=== PATIENT | male | born 1950 | race Caucasian/White ===

== ENCOUNTER 2019-05-09 05:53 | Emergency (ER) | payer MEDICARE, OTHER ==
[2019-05-09 06:16] VITALS: BP 135/79; PULSE 84; RESP 22; TEMP 97.4
[2019-05-09 06:41] LABS: Basophils % (A) 0 %; Eosinophils # (A) 0.1 k/uL (0-0.7); Eosinophils % (A) 1 %; HCT 46.8 % (39.0-53.0); HGB 14.9 gm/dL (13.0-17.5); Lymphocytes # (A) 1.6 k/uL (1.0-4.8); Lymphocytes % (A) 28 %; MCH 27.3 pg (25.0-35.0); MCHC 31.8 g/dL (31.0-37.0); Mean Platelet Volume 7.8; Monocytes # (A) 0.2 k/uL (0-1.0); Monocytes % (A) 3 %; Neutrophils # (A) 3.9 k/uL (1.3-7.7); Neutrophils % (A) 67 %; Platelet Count 252 k/uL (150-450); RBC 5.44 m/uL (4.30-5.90); RDW 14.7 % (11.5-15.5); WBC 5.9 k/uL (3.8-10.6)
[2019-05-09 06:51] LABS: INR 1.1 (<1.2); Partial Thromboplastin Time 26.6 sec (22.0-30.0); Prothrombin Time 11.6 sec (9.0-12.0)
[2019-05-09 06:54] LABS: Albumin 4.1 g/dL (3.5-5.0); Calcium 9.8 mg/dL (8.4-10.2); Potassium 4.6 mmol/L (3.5-5.1); Total Protein 7.9 g/dL (6.3-8.2)
--- NOTE | 2019-05-09 07:04 | XR ---
EXAM: XR Chest, 2 Views CLINICAL HISTORY: difficulty breathing TECHNIQUE: Frontal and lateral views of the chest. COMPARISON: No relevant prior studies available. FINDINGS: Lungs: Hyperinflated lungs. Mild retrocardiac infiltrate. Pleural space: Unremarkable. No pleural effusions. No pneumothorax. Heart: Unremarkable. No cardiomegaly. Mediastinum: Unremarkable. Bones/joints: Probable chronic compression deformities in the mid to lower thoracic spine. IMPRESSION: Mild retrocardiac infiltrate may represent pneumonia. No pleural effusions. Recommend followup to resolution. COPD changes.
--- NOTE | 2019-05-09 07:10 | ED ---
General Adult HPI - General Chief complaint: Shortness of Breath Stated complaint: Altered Mental Time Seen by Provider: 05/09/19 06:00 Source: patient, EMS Mode of arrival: EMS Limitations: language barrier, altered mental status, physical limitation - History of Present Illness Initial comments: This a 68-year-old male presents emergency department via EMS chief complaint of shortness of breath. 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 Patient is well-known to EMS. Patient does complain of shortness of breath he states he feels that his lungs are filling up with fluid in states that he has a productive cough. He has no complaint of chest pain no headache or dizziness. Denies any abdominal pain including nausea and diarrhea constipation. Patient denies any current medications. - Related Data Previous Rx's Medication Instructions Recorded Azithromycin [Zithromax Z-pack] 0 mg PO DIRECTED #1 pack 05/09/19 Allergies Allergy/AdvReac Type Severity Reaction Status Date / Time Unable to Assess Allergy Verified 05/09/19 06:16 Review of Systems ROS Statement: Those systems with pertinent positive or pertinent negative responses have been documented in the HPI. ROS Other: All systems not noted in ROS Statement are negative. Past Medical History Past Medical History: Unable to Obtain History of Any Multi-Drug Resistant Organisms: Unobtainable Past Surgical History: Unable to Obtain Past Psychological History: Unable to Obtain Smoking Status: Unknown if ever smoked Past Alcohol Use History: Unable to Obtain Past Drug Use History: Unable to Obtain General Exam Limitations: language barrier, altered mental status, physical limitation General appearance: alert, in no apparent distress Head exam: Present: atraumatic, normocephalic, normal inspection Eye exam: Present: normal appearance, PERRL, EOMI. Absent: scleral icterus, c onjunctival injection, periorbital swelling ENT exam: Present: mucous membranes moist. Absent: normal oropharynx (No dentition) Neck exam: Present: normal inspection. Absent: tenderness, meningismus, lymphadenopathy Respiratory exam: Present: rhonchi (Very faint). Absent: normal lung sounds bilaterally, respiratory distress, wheezes, rales, stridor Cardiovascular Exam: Present: regular rate, normal rhythm, normal heart sounds. Absent: systolic murmur, diastolic murmur, rubs, gallop, clicks GI/Abdominal exam: Present: soft, normal bowel sounds. Absent: distended, t enderness, guarding, rebound, rigid Neurological exam: Present: alert Skin exam: Present: warm, dry, intact, normal color. Absent: rash Course Vital Signs 05/09/19 06:10 Temperature 97.4 F L Pulse Rate 84 Respiratory 22 Rate Blood Pressure 135/79 Medical Decision Making - Medical Decision Making 68-year-old male presents emergency Department with chief complaint of shortness of breath. Patient had chest x-ray, labs which shows evidence of pneumonia. Patient is given Rocephin will be discharged on azithromycin. Return parameters were discussed. - Lab Data Result diagrams: 05/09/19 06:30 05/09/19 06:30 Lab Results 05/09/19 05/09/19 05/09/19 Range/Units 06:30 06:30 06:30 WBC 5.9 (3.8-10.6) k/uL RBC 5.44 (4.30-5.90) m/uL Hgb 14.9 (13.0-17.5) gm/dL Hct 46.8 (39.0-53.0) % MCV 86.0 (80.0-100.0) fL MCH 27.3 (25.0-35.0) pg MCHC 31.8 (31.0-37.0) g/dL RDW 14.7 (11.5-15.5) % Plt Count 252 (150-450) k/uL Neutrophils % 67 % Lymphocytes % 28 % Monocytes % 3 % Eosinophils % 1 % Basophils % 0 % Neutrophils # 3.9 (1.3-7.7) k/uL Lymphocytes # 1.6 (1.0-4.8) k/uL Monocytes # 0.2 (0-1.0) k/uL Eosinophils # 0.1 (0-0.7) k/uL Basophils # 0.0 (0-0.2) k/uL PT 11.6 (9.0-12.0) sec INR 1.1 (<1.2) APTT 26.6 (22.0-30.0) sec Sodium 139 (137-145) mmol/L Potassium 4.6 (3.5-5.1) mmol/L Chloride 100 (98-107) mmol/L Carbon Dioxide 29 (22-30) mmol/L Anion Gap 10 mmol/L BUN 19 (9-20) mg/dL Creatinine 1.09 (0.66-1.25) mg/dL Est GFR (CKD-EPI)AfAm 81 (>60 ml/min/1.73 sqM) Est GFR (CKD-EPI)NonAf 70 (>60 ml/min/1.73 sqM) Glucose 134 H (74-99) mg/dL Calcium 9.8 (8.4-10.2) mg/dL Magnesium 2.0 (1.6-2.3) mg/dL Total Bilirubin 1.0 (0.2-1.3) mg/dL AST 16 L (17-59) U/L ALT 15 L (21-72) U/L Alkaline Phosphatase 70 (38-126) U/L Troponin I (0.000-0.034) ng/mL NT-Pro-B Natriuret Pep pg/mL Total Protein 7.9 (6.3-8.2) g/dL Albumin 4.1 (3.5-5.0) g/dL 05/09/19 05/09/19 Range/Units 06:30 06:30 WBC (3.8-10.6) k/uL RBC (4.30-5.90) m/uL Hgb (13.0-17.5) gm/dL Hct (39.0-53.0) % MCV (80.0-100.0) fL MCH (25.0-35.0) pg MCHC (31.0-37.0) g/dL RDW (11.5-15.5) % Plt Count (150-450) k/uL Neutrophils % % Lymphocytes % % Monocytes % % Eosinophils % % Basophils % % Neutrophils # (1.3-7.7) k/uL Lymphocytes # (1.0-4.8) k/uL Monocytes # (0-1.0) k/uL Eosinophils # (0-0.7) k/uL Basophils # (0-0.2) k/uL PT (9.0-12.0) sec INR (<1.2) APTT (22.0-30.0) sec Sodium (137-145) mmol/L Potassium (3.5-5.1) mmol/L Chloride (98-107) mmol/L Carbon Dioxide (22-30) mmol/L Anion Gap mmol/L BUN (9-20) mg/dL Creatinine (0.66-1.25) mg/dL Est GFR (CKD-EPI)AfAm (>60 ml/min/1.73 sqM) Est GFR (CKD-EPI)NonAf (>60 ml/min/1.73 sqM) Glucose (74-99) mg/dL Calcium (8.4-10.2) mg/dL Magnesium (1.6-2.3) mg/dL Total Bilirubin (0.2-1.3) mg/dL AST (17-59) U/L ALT (21-72) U/L Alkaline Phosphatase (38-126) U/L Troponin I <0.012 (0.000-0.034) ng/mL NT-Pro-B Natriuret Pep 148 pg/mL Total Protein (6.3-8.2) g/dL Albumin (3.5-5.0) g/dL Disposition Clinical Impression: Community acquired pneumonia Disposition: HOME SELF-CARE Condition: Stable Instructions (If sedation given, give patient instructions): Pneumonia (ED) Additional Instructions: Please return to the Emergency Department if symptoms worsen or any other concerns. Prescriptions: Azithromycin [Zithromax Z-pack] 0 mg PO DIRECTED #1 pack Is patient prescribed a controlled substance at d/c from ED?: No [facility] [Primary Care Provider] - 1-2 days Time of Disposition: 07:33
[2019-05-09] MEDS ORDERED: cefTRIAXone IN SWFI 1,000 MG/10 ML SYRINGE IVP STA (07:27)
== END 2019-05-09 07:35 | disposition home or self-care (01) ==
LOC: EC 05:53
DX: J18.9 Pneumonia, unspecified organism (principal); R41.82 Altered mental status, unspecified; R47.01 Aphasia
CPT/HCPCS: 36415; 83880; 80053; 83735; 84484; 85025; 85610; 85730; 71046; 99285; 96374; J0696